=== PATIENT | female | born 2000 | race Caucasian/White ===

== ENCOUNTER 2025-04-30 14:49 | Emergency (ER) | payer BC, SELFPAY ==
--- OUTSIDE RECORDS SUMMARY | 2025-04-29 11:15 | XMS_ITS | Encounter Summary ---
Author Organization [facility] Address [facility] [place] [address] Care Team Providers Care Septic Tank Cleaner Name Role Phone Sia Rojas APRN Primary Care Provider Encounter Details Date Type Department Care Team (Latest Contact Info) Description 04/29/2025 11:15 AM EDT TH Visit (TeleHealth) Primary Care at [address] [phone] Tasneem Agosto APRN [address] [place] [id number] Insomnia, unspecified type Social History Tobacco Use Types Packs/Day Years Used Date Smoking Tobacco: Never Smokeless Tobacco: Never Alcohol Use Standard Drinks/Week Comments Yes 0 (1 standard drink = 0.6 oz pur e alcohol) [facility] Utilities Answer Date Recorded In the past 12 months has e [employer], gas, oil, or water [employer] threatened to shut off services in your home? No 07/26/2023 Humiliation, Afraid, Rape, and Kick questionnair e Answer Date Recorded Within the last year, have y ou been afraid of your partner or ex-partner? No 07/26/2023 Within the last year, have y ou been humiliated or emotionally abused in other ways by your partner or ex-partner? No Within the last year, have y ou been kicked, hit, slapped, or otherwise physically hurt by your partner or ex-partner? No 07/26/2023 Within the last year, have y ou been raped or forced to have any kind of sexual activity by your partner or ex-partner? No 07/26/2023 Overall Financial Resource Strain (CARDIA) Answe r Date Recorded How hard is it for you to pa y for the very basics like food, housing, medical care, and heating? Not hard at all 07/26/2023 Exercise Vital Sign Answer Date Recorde d On average, how many days pe r week do you engage in moderate to strenuous exercise (like a brisk walk)? 4 days 07/26/2023 On average, how many minutes do you engage in exercise at this level? 40 min 07/26/2023 Hunger Vital Sign Answer Date Recorded Within the past 12 months, y ou worried that your food would run out before you got the money to buy more. Never true 07/26/19 24 Within the past 12 months, t he food you bought just didn't last and you didn't have money to get more. Never true 07/26/2023 PRAPARE - Transportation Answer Date Re corded In the past 12 months, has l ack of transportation kept you from medical appointments or from getting medications? No 07/17 In the past 12 months, has l ack of transportation kept you from meetings, work, or from getting things needed for daily living? No 07/26/2023 Housing Stability Vital Sign Answer Vito e Recorded In the last 12 months, was t here a time when you were not able to pay the mortgage or rent on time? No 07/26/2023 In the last 12 months, how many places have you lived? 2 07/26/2023 In the last 12 months, was t here a time when you did not have a steady place to sleep or slept in a jail (including now)? No 07/26/2023 Education Answer Date Recorded What is the highest level of school you have completed or the highest degree you have received? Bachelor's degree (e.g., BA, AB, BS) 06/30/2023 Comments No Sex and Gender Information Value Date Recorded Sex Assigned at Female 06/30/2023 10:38 AM EST Legal Sex Female 12:17 PM EDT Gender Identity Female 05/20/2019 3:32 PM EST Sexual Orientation Straight 06/30/2023 10 :38 AM EST documented as of this encounter Progress Notes * Tasneem Agosto, PASSPORT SUPPORT ASSOCIATE - 04/29/2025 11:15 AM EDT ID: Alden Mckee is a 24 y.o. female Assessment and Plan: Assessment & Plan Insomnia Insomnia has improved significantly with Dayvigo 5 mg nightly. She reports approximately seven hours of sleep per night, occasionally falling asleep before taking the medication but still achieving five to six hours of sleep. No significant side effects reported, except for decreased appetite, which is not a known side effect of Dayvigo. No morning hangover or excessive fatigue experienced. - Continue Dayvigo 5 mg nightly. - Advise to notify the office seven days before running out of medication for refills. - Encourage maintaining a consistent sleep routine. Depression Depression symptoms have improved, attributed to better sleep. No changes to her current Lexapro 20mg daily regimen. - Continue Lexapro 20 mg daily. Patient is aware of signs and symptoms that require follow-up care or emergency care. Patient is in agreement with today's plan. Leaves in stable condition. Follow up if worsening or failing to gradually improve as anticipated. Voices understanding and agrees. Will call with concerns. Subjective: History of Present Illness Alden Mckee is a 24 year old female with chronic insomnia and depression who presents for follow-up on insomnia challenges and mental health. Insomnia - Chronic difficulty with sleep onset and maintenance - Previously treated with trazodone, which caused nausea and vomiting - Switched to Dayvigo 5 mg nightly approximately two weeks ago - Improved sleep duration to approximately seven hours per night with Dayvigo - On nights without Dayvigo, sleep duration is five to six hours - No unusual dreams or morning hangover effects - Prolonged time to become fully alert in the morning Appetite changes - Decreased appetite since starting Dayvigo - Uncertain if appetite changes are related to Dayvigo or other factors Depressive symptoms - Worsening of depressive symptoms after discontinuing mirtazapine - Improvement in mental health since starting Dayvigo, correlating with improved sleep Patient Active Problem List Diagnosis Other insomnia Anxiety Nexplanon in place Overview Note: Right arm 10/14/22 Unstable ankle Dysmenorrhea in adolescent Adolescent idiopathic scoliosis Patellofemoral pain syndrome of right knee Myopia of both eyes with astigmatism Dairy product intolerance Exercise-induced asthma Allergies[1] She reports that she has never smoked. She has never used smokeless tobacco. Review Of Systems: Review of Systems Objective: Vitals: telehealth video visit, unable to collect Medications: Current Medications[2] Labs: Lab Results Component Value Date HA1C 5.0 03/28/2020 Lab Results Component Value Date NA 139 03/28/2020 K 3.8 03/28/2020 CL 100 03/28/2020 CO2 28 03/28/2020 BUN 9 (L) 03/28/2020 CREATININE 0.69 03/28/2020 GLUCOSE 114 03/28/2020 CALCIUM 10.6 (H) 03/28/2020 ESTGFR 127 03/28/2020 Lab Results Component Value Date ALT 23 03/28/2020 AST 20 03/28/2020 ALKPHOS 27 (L) 03/28/2020 BILITOT 0.5 03/28/2020 BILIDIR 0.1 09/23/2016 ALBUMIN 5.0 03/28/2020 PROT 7.8 03/28/2020 Physical Exam Constitutional: General: She is not in acute distress. Appearance: Normal appearance. Pulmonary: Effort: Pulmonary effort is normal. No respiratory distress. Neurological: General: No focal deficit present. Mental Status: She is alert. Psychiatric: Mood and Affect: Mood normal. Behavior: Behavior normal. Thought Content: Thought content normal. All parties consented to the use of ambient listening technology to document this visit. [1] Allergies Allergen Reactions Gluten Nausea Only Milk Nausea Only [2] Current Outpatient Medications: escitalopram (Lexapro) 20 mg tablet, TAKE 1 TABLET BY MOUTH ONCE DAILY, Disp: 90 tablet, Rfl: 3 lemborexant (Dayvigo) 5 mg tablet, Take 1 tablet by mouth nightly., Disp: 30 tablet, Rfl: 1 ondansetron ODT (Zofran-ODT) 4 mg disintegrating tablet, Take 1 tablet by mouth every 8 hours as needed for Nausea., Disp: 20 tablet, Rfl: 0 etonogestreL-ethinyl estradioL (NUVARING) 0.12-0.015 mg/24 hr Ring, Insert vaginally and leave in place for 3 consecutive weeks, replace with new ring every 3 weeks for continuous use, Disp: 3 each, Rfl: 5 albuteroL (ProAir HFA) 90 mcg/actuation HFA Aerosol Inhaler, Inhale 2 puffs into the lungs every 4 hours as needed for Wheezing. Use with spacer, Disp: 18 g, Rfl: 3 clindamycin (Cleocin T) 1 % Solution, Apply 1 each topically 2 times daily., Disp: 30 mL, Rfl: 5 cetirizine (ZyrTEC) 10 mg tablet, Take 10 mg by mouth daily., Disp: , Rfl: etonogestreL (Nexplanon) 68 mg Implant, 1 each by Subdermal route Continuous (Device). Expected removal date 10/14/2025, Disp: 1 each, Rfl: 0 Aerochamber Max with Flow-VU Spacer, , Disp: , Rfl: ibuprofen (ADVIL;MOTRIN) 400 mg Tablet, Take 400 mg by mouth as needed for Pain., Disp: , Rfl: EPINEPHrine 0.3 mg/0.3 mL Auto-Injector, INJECT 0.3ML INTRAMUSCULARLY DIRECTED., Disp: , Rfl: documented in this encounter Plan of Treatment Not on file documented as of this encounter Visit Diagnoses Diagnosis Insomnia, unspecified type documented in this encounter Care Teams Septic Tank Cleaner Relationship Specialty Start Date End Date Sia Rojas APRN [address] [place] [id number] PCP - General 11/13/12 documented as of this encounter
[2025-04-30 14:51] VITALS: BP 134/92; PULSE 86; RESP 18; TEMP 36.8; O2SAT 99; BMI 23.0
--- NOTE | 2025-04-30 14:51 | ED_ITS ---
HPI - General Adult General Chief complaint: Nausea/Vomiting/Diarrhea Stated complaint: vomiting Related Data Allergies Allergy/AdvReac Type Severity Reaction Status Date / Time No Known Allergies Allergy Verified 04/30/25 14:55 PMF Social History Social History Advance Directives: No Advance Directives Information Provided: No Do you have a plan to hurt others: No Plan Physical Exam ED Vital Signs: Vital Signs - 24 hr 04/30/25 14:51 Temperature 98.2 F Pulse Rate 86 Respiratory Rate 18 Blood Pressure 134/92 H Pulse Oximetry 99 BMI result Body Mass Index 23.0 Course Course Course Narrative: This is a Rapid Medical Examination (RME) performed by Gilda Ruff PA-C in triage. Full HPI, ROS, assessment and treatment plan per primary provider in the Main ED. Hx: 24 yo F here w/ 2 weeks of decreased appetite and N/V. follows w/ provider in [place] for this, moved to [place] last year. recent med change to insomnia meds. etoh consumption 1-2 drinks every weekend. uses marijuana 1-2 times daily. Plan: labs, hcg Reevaluation(s) Reevaluation #1: Patient left the emergency department before myself or any of the other clinicians could review or explain physical exam findings, test results, need or lack there of for additional testing, treatment options, or a treatment plan. Medical Decision Making Lab Data 04/30/25 15:02 04/30/25 15:02 Labs: Lab Results 04/30/25 Range/Units 15:02 WBC 8.3 (4.8-10.8) X10*3/uL RBC 4.98 (4.20-5.50) X10*6/uL Hgb 14.4 (12.0-16.0) g/dl Hct 41.8 (37.0-47.0) % MCV 83.9 (80.0-98.0) fL MCH 28.9 (27.0-33.0) pg MCHC 34.4 (31.0-35.0) g/dl RDW 12.2 (11.0-16.0) % Plt Count 304 (160-400) X10*3/uL MPV 9.1 L (9.4-12.3) fL Immature Gran % (Auto) 0.2 (0.0-0.4) % Neut % (Auto) 70.1 (45-73) % Lymph % (Auto) 24.2 (20-40) % Charles % (Auto) 3.7 (2-11) % Eos % (Auto) 0.7 (0-4) % Baso % (Auto) 1.1 (0-2) % Lymph # (Auto) 2.0 (1.2-4.9) X10*3/uL Charles # (Auto) 0.3 (0.1-1.2) X10*3/uL Eos # (Auto) 0.1 (0.0-0.4) X10*3/uL Baso # (Auto) 0.1 (0.0-0.2) X10*3/uL Abs Immat Gran (auto) 0.02 (0.00-0.03) X10*3/uL Absolute Neuts (auto) 5.8 (2.0-8.3) x10*3/uL Absolute Nucleated RBC 0.000 (0.0-0.012) X10*3/uL Nucleated RBC % (auto) 0.0 (0.0-0.2) /100WBC Sodium 140 (135-145) mmol/L Potassium 3.8 (3.3-5.1) mmol/L Chloride 110 H (96-108) mmol/L Carbon Dioxide 22 (22-29) mmol/L Anion Gap 12 (12-20) BUN 6 L (9-16) mg/dL Creatinine 0.66 (0.5-1.4) mg/dL Estim Creat Clear Calc 104.8 Estimated GFR > 60 Random Glucose 106 (60-115) mg/dL Calcium 9.3 (8.4-10.2) mg/dL Magnesium 2.0 (1.6-2.6) mg/dL Total Bilirubin 0.6 (0.0-1.0) mg/dL AST 24 (5-31) U/L ALT 22 (0-31) U/L Alkaline Phosphatase 18 L (39-117) U/L Total Protein 7.5 (6.5-8.0) g/dL Albumin 4.8 (3.5-5.0) g/dL Lipase 15 (8-78) U/L Beta HCG, Quant < 2 mIU/mL Discharge Plan Discharge Clinical Impression: Nausea & vomiting Patient Disposition: Left W/O Completing Treatment Discharge Date/Time: 04/30/25 19:32
[2025-04-30 15:07] LABS: MANUAL DIFF FLAG NO
[2025-04-30 15:10] LABS: Hematocrit 41.8 % (37.0-47.0); Hemoglobin 14.4 g/dl (12.0-16.0); Imm Gran Abs Auto 0.02 X10*3/uL (0.00-0.03); Imm Gran Pct Auto 0.2 % (0.0-0.4); Lymphocytes Absolute Auto 2.0 X10*3/uL (1.2-4.9); Mean Corpuscular HGB Conc 34.4 g/dl (31.0-35.0); Mean Corpuscular Hemoglobin 28.9 pg (27.0-33.0); Mean Corpuscular Volume 83.9 fL (80.0-98.0); NRBC Abs Auto 0.000 X10*3/uL (0.0-0.012); NRBC Pct Auto 0.0 /100WBC (0.0-0.2); Platelet Count 304 X10*3/uL (160-400); Red Blood Count 4.98 X10*6/uL (4.20-5.50); White Blood Count 8.3 X10*3/uL (4.8-10.8)
[2025-04-30 15:30] LABS: Alanine Aminotransferase 22 U/L (0-31); Albumin Level 4.8 g/dL (3.5-5.0); Anion Gap 12 (12-20); Aspartate Amino Transferase 24 U/L (5-31); Blood Urea Nitrogen 6 mg/dL (9-16); Calcium 9.3 mg/dL (8.4-10.2); Carbon Dioxide 22 mmol/L (22-29); Chloride 110 mmol/L (96-108); Creatinine Clr Calc Pharmacy 104.8; Estimated Glomerular Filt Rate > 60; Lipase 15 U/L (8-78); Magnesium 2.0 mg/dL (1.6-2.6); Potassium 3.8 mmol/L (3.3-5.1); Sodium 140 mmol/L (135-145); Total Protein 7.5 g/dL (6.5-8.0)
[2025-04-30 15:59] LABS: Alkaline Phosphatase 18 U/L (39-117)
--- OUTSIDE RECORDS SUMMARY | 2025-04-30 19:38 | XMS_ITS | Encounter Summary ---
Author Organization [facility] Address [facility] [place] [address] Care Team Providers Care Peer Educator Name Role Phone Sia Rojas APRN Primary Care Provider Reason for Visit * Reason Onset Date Comments Medication Refill 08/08/2019 Encounter Details Date Type Department Care Team ([facility] st Contact Info) Description 08/08/2019 Refill Primary Care at [address] [phone] Sia Rojas APRN [address] [place] [phone] Dysmenorrhea Social History Tobacco Use Types Packs/Day Years Used Date Smoking Tobacco: Never Smokeless Tobacco: Never Alcohol Use Standard Drinks/Week Comments No 0 (1 standard drink = 0.6 oz pur e alcohol) Comments No Sex and Gender Information Value Date Recorded Sex Assigned at Female 06/30/2023 10:38 AM EST Legal Sex Female 12:17 PM EDT Gender Identity Female 05/20/2019 3:32 PM EST Sexual Orientation Straight 06/30/2023 10 :38 AM EST documented as of this encounter Plan of Treatment Not on file documented as of this encounter Visit Diagnoses Diagnosis Dysmenorrhea documented in this encounter Care Teams Peer Educator Relationship Specialty Start Date End Date Sia Rojas APRN [address] [place] [phone] PCP - General 11/13/12 documented as of this encounter
--- OUTSIDE RECORDS SUMMARY | 2025-04-30 19:38 | XMS_ITS | Clinical Summary ---
Author Organization [facility] Address [facility] [place] [address] Care Team Providers Care Flight Dynamicist Name Role Phone Crystal Sia DEL VALLE Primary Care Provider Allergies Active Allergy Reactions Criticality Noted Date Comments Gluten Nausea Only 09/23/2016 Milk Nausea Only 09/23/2016 Medications EPINEPHrine 0.3 mg/0.3 mL Auto-Injector INJECT 0.3ML INTRAMUSCULARLY DIRECTED. 11/26/19 16 Active ibuprofen (ADVIL;MOTRIN) 400 mg Tablet Take 400 mg by mouth as needed for Pain. Active Aerochamber Max with Flow-VU Spacer 01/28/20 20 Active etonogestreL (Nexplanon) 68 mg ImplantIndication s:Encounter for removal and reinsertion of Nexplanon 1 each by Subdermal route Continuous (Device). Expected removal date 10/14/2025 1 each 10/15/19 23 033 Active albuteroL (ProAir HFA) 90 mcg/actuation HFA Aerosol InhalerIndication s:Exercise-induce d asthma Inhale 2 puffs into the lungs every 4 hours as needed for Wheezing. Use with spacer 18 g 3 07/31/19 24 Active clindamycin (Cleocin T) 1 % SolutionIndicatio ns:Acne vulgaris Apply 1 each topically 2 times daily. 30 mL 5 07/31/19 24 Active cetirizine (ZyrTEC) 10 mg tablet Take 10 mg by mouth daily. 05/31/20 23 Active etonogestreL-ethi nyl estradioL (NUVARING) 0.12-0.015 mg/24 hr RingIndications:D ysmenorrhea,Abnor mal uterine bleeding (AUB) Insert vaginally and leave in place for 3 consecutive weeks, replace with new ring every 3 weeks for continuous use 3 each 5 07/04/20 24 Active ondansetron ODT (Zofran-ODT) 4 mg disintegrating tabletIndications :Nausea and vomiting, unspecified vomiting type Take 1 tablet by mouth every 8 hours as needed for Nausea. 20 tablet 04/14/20 25 Active lemborexant (Dayvigo) 5 mg tabletIndications :Insomnia, unspecified type Take 1 tablet by mouth nightly. 30 tablet 1 04/15/20 25 Active Active Problems Problem Noted Date Diagnosed Date Other insomnia 01/19/2024 Anxiety 04/04/[address] 10/21/2019 Overview (10/14/2022): Right arm 10/14/22 Unstable ankle 06/04/2019 Dysmenorrhea in adolescent 10/10/2018 Adolescent idiopathic scoliosis 11/20/2017 Patellofemoral pain syndrome of right knee 04/24 Myopia of both eyes with astigmatism 08/08/2016 Dairy product intolerance 07/25/2016 Exercise-induced asthma 02/20/2016 Encounters Date Type Department Care Team Description 04/29/2025 11:15 AM EDT TH Visit (TeleHealth) Primary Care at [address] [phone] Tasneem Agosto APRN Insomnia, unspecified type 04/17/2025 Refill Primary Care at [address] [phone] Sia Rojas APRN Anxiety; Insomnia, unspecified type 04/14/2025 8:20 AM EDT TH Visit (TeleHealth) Primary Care at [address] [phone] Tasneem Agosto APRN Insomnia, unspecified type; Nausea and vomiting, unspecified vomiting type 03/25/2025 9:35 AM EDT Office Visit Primary Care at [address] [phone] Sia Rojas APRN Exercise-induced asthma; Anxiety; Nexplanon in place; Insomnia, unspecified type 03/25/2025 Travel 03/19/2025 Travel 02/13/2025 Travel from Last 3 Months Immunizations Immunization Administration Dates Next Due Covid-19 Monovalent (Pfizer Comirnaty purple cap) 12yrs+ ([id number]) 07/21/2021,01/03/2021,12/13/2020 DTP 11/13/2006, 3,02/19/2002,12/18,2001 HIB PRP-T Conjugate (ActHIB, Hiberix, OmniHib) 2001,2001 HPV, Quadrivalent (Gardasil) 03/07/2017,09/23/19 17,07/25/2016 Hepatitis A Adult (Havrix, Vaqta) 06/15/2020 Hepatitis A Pediatric/Adoles cent (Havrix, Vaqta) 09/10/2019 Hepatitis B Adult (Engerix-B , Recombivax) 05/21/2002,2001,2001 Hib PRP-OMP Conjugate (PedvaxHIB) 09/03/2003,12/2001 Influenza Quadrivalent, Pres ervative Free 07/31/2023,06/15/2020,06/10/2019,04/27 MMR Vaccine LIVE 11/09/2005,08/26/2002 Meningococcal ACWY Polysacch aride Conjugate (Menactra) 06/10/2019,03/07/2017 Pneumococcal 13-Valent Conju gate (Prevnar 13) 02/19/2002,2001 Polio Inactivated (IPOL) 11/13/2006,08/0 03/2004,2001,10/18 Tdap (Adacel, Boostrix) 01/23/2013 Tetanus Toxoid, Absorbed 07/31/2023 Varicella LIVE (Varivax) 10/20/2005,08/26/2002 Family History Medical History Relation Comments Asthma Brother Bipolar Disorder Maternal Grandfather Schizophrenia Maternal Grandfather Parkinsonism Maternal Grandmother Irritable Bowel Syndrome Mother Crohn Disease Neg Hx Liver Disease Neg Hx Ulcerative Colitis Neg Hx Relation Status Comments Brother Maternal Grandfather Maternal Grandmother Mother Social History Tobacco Use Types Packs/Day Years Used Date Smoking Tobacco: Never Smokeless Tobacco: Never Alcohol Use Standard Drinks/Week Comments Yes 0 (1 standard drink = 0.6 oz pur e alcohol) occ [facility] Utilities Answer Date Recorded In the past 12 months has th e electric, gas, oil, or water company threatened to shut off services in your [...] place to sleep or slept in a [place] (including now)? No 07/26/2023 Education Answer Date [...] Orientation Straight 06/30/2023 10 :38 AM EST Last Filed Vital Signs Vital Sign Reading Time Taken Comments Blood Pressure 118/60 03/25/2025 9:40 AM EDT Pulse 82 03/25/2025 9:40 AM EDT Temperature 36.8 C (98.2 F) 07/31/2023 9:02 AM EST Respiratory Rate 14 11/23/2020 4:10 PM EDT Oxygen Saturation 100% 03/25/2025 9:40 AM EDT Inhaled Oxygen Concentration - - Weight 60.1 kg (132 lb 6.4 oz) 03/25/2025 9:40 A M EDT Height 159.8 cm (5' 2.91 ) 07/31/2023 9:02 AM ES T Body Mass Index 23.52 07/31/2023 9:02 AM EST Plan of Treatment Health Maintenance Due Date Last Done Comments Pneumococcal Vaccine: At-Ris k 5-49yrs (1 of 1 - PPSV23, PCV20, or PCV21) 2007 02/19/2002, 2001 Covid-19 Vaccine ( - 2024-2 6 season) 2025 07/21/2021, 01/03/2021, 12/13/2020 Influenza (Flu) vaccine (1 o f 1 - Influenza standard series) 03/17/2025 07/31/2023, 06/15/2020, 06/10/2019, Additional history exists Chlamydia Screening 07/04/2025 07/04/2024, 07/31/2023, 09/12/2019, Additional history exists PAP Smear 10/14/2025 10/14/2022 Tetanus/Diphtheria/Pertussis Vaccines (8 - Td or Tdap) 07/31/2033 07/31/2023, 01/23/2013, 11/13/2006, Additional history exists Hepatitis B vaccine (0-59 yr s) and Risk Completed 05/21/2002, 2001, 2001 HPV vaccine Completed 03/07/2017, 03/2017, 07/25/2016 HIV screen Completed 09/12/2019 Hepatitis C Screening Completed 03/28/2020 Procedures Procedure Name Priority Date/Time Associated Diagnosis Comments GC/CHLAMYDIA Routine 07/04/2024 3:23 PM EST Routine screening for STI (sexually transmitted infection) TEXTILE COLORIST DYER CYTOLOGY FINAL REPORT Routine 10/14/2022 4:06 PM EDT HC HEPATITIS C ANTIBODY Routine 03/28/2020 8:35 AM EDT Encounter for hepatitis C screening test for low risk patient HC HIV-1/2 AG/AB 4TH GEN Routine 09/12/2019 3:53 PM EST Screening for HIV (human immunodeficiency virus) from Last 3 Months or Most Recently Relevant to Health Maintenance Results * GC/Chlamydia (07/04/2024 3:23 PM EST) Gonorrhoeae Gene Amp Negative 07/05/2024 3:03 AM EST [facility] Chlamydia Gene Amp Negative 07/05/2024 3:03 AM EST [facility] Urine URINE SPECIMEN / Unknown Non Blood Collection / Unknown 07/04/2024 3:23 PM EST 07/04/2024 4:40 PM EST us Hawa Ng ECONOMIC DEVELOPMENT DIRECTOR MICROBIOLOGY - GENERAL ORD ERABLES Final Result [facility] [place] [address] * Truck Service Manager Cytology Final Report (10/14/2022 4:06 PM EDT) Truck Service Manager Cytology Final Report [id number] Location: [facility] The signing pathologist has (i) examined the relevant preparation(s) for the specimen(s) and (ii) rendered or confirmed the diagnosis(es). . Truck Service Manager Final DIAGNOSIS Normal Negative for intraepithelial lesion or malignancy (NILM). For consensus guidelines for the management of cervical cancer screening test results, please see: http://www.asccp. org . Electronically signed by: Hector HAYES(ASCP)Joyce Verified: 10/28/2022 13:27 Smoking Pipe Repairer Performed at: -[facility], [place] [address] Bi Application Developer: Raman Saha MD, FCAP, CLIA Certificate: [id number] HPV RESULTS HPV testing either not indicated or not requested by clinician. To add on HPV testing, please submit a Pathology Order Update ([id number]) via eD-H or contact the Client Response Center at . STATEMENT OF ADEQUACY Specimen submitted is satisfactory for evaluation. No endocervical component present. Note: Initial cross-sectional studies suggested that MICHAEL cells were more commonly identified when an endocervical component was present, however subsequent longitudinal studies fail to show that women lacking an endocervical component in a Pap smear are at increased risk for MICHAEL. CLINICAL INFORMATION HPV Option: No HPV CT/NG Option: No Preparation: Liquid based Pap Specimen Source: Cervical/Endocerv ical LMP: 10/04/22 Hysterectomy: No : No : No I.U.D.: No Pelvic Radiation: No Hist Abnl Pap/Biopsy: No Prior TEXTILE COLORIST DYER Therapy: No Hist of HPV Vaccine: Yes ICD Diagnosis: Z12.4 Encounter for screening for malignant neoplasm of cervix Clinical Data, Significant Therapy and Clinical Impression : _ This Pap Test has been evaluated with the assistance of the ThinPrep Pap Test Imaging System. Note: The Pap test is a screening test for cervical cancer with an inherent false-negative rate dependent upon several variables. For further information please contact the [facility]. Reference: Brice CORDON. Tire Installer of Pap Smear Results. In: Sylvia BS, Jefe HH, ed. The Pap Smear. [place]: [place], 2002: 71-77. [facility] 10/14/2022 4:06 PM EDT us Hawa Ng ECONOMIC DEVELOPMENT DIRECTOR PATHOLOGY/CYTOLOGY ORDERAB LES Final Result [facility] [place] [address] * Hepatitis C Antibody (03/28/2020 8:35 AM EDT) Hepatitis C Antibody Negative Negative [facility] Blood specimen (specimen) 03/28/2020 8:35 AM EDT 03/28/2020 8:35 AM EDT Narrative Resulting Agency Comment Spec In Lab us Sia Rojas ECONOMIC DEVELOPMENT DIRECTOR CHEMISTRY ORDERABLES Fi nal Result Performing Organization Address [facility] Co de Phone Number [facility] [address] [place] [address] * HIV Antibody Rapid Test ([place]) (09/12/2019 3:53 PM EST) HIV Ab/Ag Rapid Non-Reactive Non-React sydni [facility] HIV Comment Negative screening test indicates low risk of HIV exposure. [facility] Blood specimen (specimen) 09/12/2019 3:53 PM EST 09/12/2019 3:56 PM EST Narrative Resulting Agency Comment Spec In Lab Sia Rojas ECONOMIC DEVELOPMENT DIRECTOR CHEMISTRY ORDERABLES Fi nal Result Performing Organization Address [facility] Co de Phone Number [facility] [address] [place] [address] from Last 3 Months or Most Recently Relevant to Health Maintenance Insurance [facility] Care Teams Flight Dynamicist Relationship Specialty Start Date End Date Sia Rojas APRN [address] [place] [id number] PCP - General 11/13/12
== END 2025-04-30 19:32 | disposition left against medical advice (07) ==
PROVIDERS: Physician Assistant Medical; Emergency Provider Emergency Medicine
DX: R11.2 Nausea with vomiting, unspecified (principal); R19.7 Diarrhea, unspecified; R10.22 Pelvic and perineal pain left side
CPT/HCPCS: 36415; 80053; 83690; 83735; 84702; 85025; 99281; 99283